=== PATIENT | male | born 1960 ===

== ENCOUNTER 2017-04-17 12:18 | Emergency (ER) | payer OTHER ==
[2017-04-17 12:37] VITALS: BP 126/76
--- NOTE | 2017-04-17 12:37 | UC ---
Ear Complaint HPI - HPI Summary HPI Summary: 56 y/o male presents to the urgent care c/o B/L ear pain for the past 2 days. Pt reports he feels pressure with mild pain. Pain is 4/10, specially on the RT ear with mild hearing loss. Pt denies fever, dizziness, SOB, cough, chest pain , N/V/D - History of Current Complaint Stated Complaint: BILATERAL EAR COMPLAINT Time Seen by Provider: 04/17/17 12:36 Hx Obtained From: Patient Onset/Duration: Gradual Onset, Lasting Days - 2 days Severity Initially: Mild Severity Currently: Moderate Pain Intensity: 4 Pain Scale Used: 0-10 Numeric Aggravating Factors: Nothing Alleviating Factors: Nothing Associated Signs/Symptoms: Positive: Hearing Loss - Allergies/Home Medications Allergies/Adverse Reactions: Allergies Allergy/AdvReac Type Severity Reaction Status Date / Time No Known Allergies Allergy Verified 04/17/17 12:37 PMH/Surg Hx/FS Hx/Imm Hx Previously Healthy: Yes - Pt denies PMHX - Surgical History Surgical History: None - Family History Known Family History: Positive: None - Pt denies FMHX - Social History Occupation: Employed Full-time Lives: With Family Alcohol Use: Occasionally Substance Use Type: None Smoking Status (MU): Never Smoked Tobacco Review of Systems Constitutional: Negative Skin: Negative Eyes: Negative ENT: Ear Ache - B/L Respiratory: Negative Cardiovascular: Negative Gastrointestinal: Negative Genitourinary: Negative Motor: Negative Neurovascular: Negative Musculoskeletal: Negative Neurological: Negative Psychological: Negative Is Patient Immunocompromised?: No All Other Systems Reviewed And Are Negative: Yes Physical Exam Triage Information Reviewed: Yes Appearance: Well-Appearing, No Pain Distress, Well-Nourished Vital Signs Reviewed: Yes Eye Exam: Normal Eyes: Positive: Conjunctiva Clear - PERRLA, EOMI ENT: Positive: Normal ENT inspection, Hearing grossly normal, Pharynx normal, TM red - RT exteranl ear canal clear, Rt TM with injected with erythema and white discharge. LF external ear canal clear, LF TM with mild erythema, but positive light reflex. Neck exam: Normal Neck: Positive: Supple, Nontender, No Lymphadenopathy Respiratory Exam: Normal Respiratory: Positive: Chest non-tender, Lungs clear, Normal breath sounds, No respiratory distress Cardiovascular Exam: Normal Cardiovascular: Positive: RRR, No Murmur, Pulses Normal Abdominal Exam: Normal Abdomen Description: Positive: Nontender, No Organomegaly, Soft. Negative: CVA Tenderness (R), CVA Tenderness (L) Bowel Sounds: Positive: Present Musculoskeletal Exam: Normal Musculoskeletal: Positive: Strength Intact, ROM Intact, No Edema Neurological Exam: Normal Psychological Exam: Normal Skin Exam: Normal Ear Complaint Course/Dx - Course Course Of Treatment: 56 y/o male presents to the urgent care c/o B/L ear pain for the past 2 days. Pt reports he feels pressure with mild pain. Pain is 4/10, specially on the RT ear. Pt denies fever, dizziness, SOB, cough, chest pain, N/V /D. Hx Obtained. Pt the Acute Rt otitis media on examination. Pt Rx Amoxicillin PO and advised to take Ibuprofen OTC for pain. Pt advised If symptoms do not improve or worsen please return to the urgent care or f/u with your PCP for further evaluation and treatment. Pt understood and agreed with plan of care. left the clinic ambulating. - Differential Dx/Diagnosis Differential Diagnosis/HQI/PQRI: Cerumen Impaction, Otitis Externa, Otitis Media , Perforated TM, Pharyngitis, URI Provider Diagnoses: 1- Acute RT otitis media Discharge - Discharge Plan Condition: Stable Disposition: HOME Prescriptions: Amoxicillin PO (*) [Amoxicillin 875 MG (*)] 875 mg PO BID #20 tab Patient Education Materials: Otitis Media (ED) Referrals: Jostin Vickers MD [Primary Care Provider] - If Needed Additional Instructions: 1- Please take the full course of the antibiotic to avoid resistance. 2-Please take OTC ibuprofen PO q6-8hrs prn as instructed after meals to alleviate pain and swelling. 3-If symptoms do not improve or worsen please return to the urgent care or f/u with your PCP for further evaluation and treatment.
== END 2017-04-17 12:56 | disposition home or self-care (01) ==
LOC: UCCORT 12:18
DX: H66.91 Otitis media, unspecified, right ear (principal)
CPT/HCPCS: 99212; G0463

== ENCOUNTER 2019-07-16 19:52 | Emergency (ER) | payer OTHER ==
--- NOTE | 2019-07-16 19:53 | UC ---
Skin Complaint HPI - HPI Summary HPI Summary: 58 yo male presents with abscess to back. He tells me that he has had many of these in the past. This one has been red, swollen, and painful for about 5 days. Denies fever. No hx of MRSA. No fever or chills - History of Current Complaint Time Seen by Provider: 07/16/19 19:53 Stated Complaint: SORE ON BACK Hx Obtained From: Patient Onset/Duration: Gradual Onset Onset Severity: Mild Current Severity: Mild Pain Intensity: 5 Pain Scale Used: 0-10 Numeric - Allergy/Home Medications Allergies/Adverse Reactions: Allergies Allergy/AdvReac Type Severity Reaction Status Date / Time No Known Allergies Allergy Verified 07/16/19 20:04 Home Medications: Home Medications Ibuprofen TAB* [Advil TAB*] 200 mg PO Q6HR 07/16/19 [History Confirmed 07/16/19] PMH/Surg Hx/FS Hx/Imm Hx - Additional Past Medical History Additional PMH: None - Surgical History Surgical History: None - Family History Known Family History: Positive: None - Pt denies FMHX - Social History Occupation: Employed Full-time Lives: With Family Alcohol Use: Occasionally Substance Use Type: None Smoking Status (MU): Never Smoked Tobacco Review of Systems All Other Systems Reviewed And Are Negative: No Constitutional: Positive: Negative Skin: Positive: Other - sore and back Respiratory: Positive: Negative Cardiovascular: Positive: Negative Neurological: Positive: Negative Psychological: Positive: Negative Physical Exam - Summary Physical Exam Summary: GENERAL: NAD. WDWN. No pain distress. SKIN: Central back with 7.0cm oval area of induration, firmness, and mild TTP. No drainage or streaking. NECK: Supple. Nontender. No lymphadenopathy. CHEST: No accessory muscle use. Breathing comfortably and in no distress. CV: Pulses intact. Cap refill <2seconds NEURO: Alert. PSYCH: Age appropriate behavior. Triage Information Reviewed: Yes Vital Signs: Vital Signs: Temp Pulse Resp BP Pulse Ox 98.3 F 83 16 113/59 97 07/16/19 19:59 07/16/19 19:59 07/16/19 19:59 07/16/19 19:59 07/16/19 19:59 Vital Signs Reviewed: Yes Procedures - Incision and Drainage 1 Anesthesia: Local Instrument(s): Scalpel - #11 Course/Dx - Course Course Of Treatment: The procedure was explained to the pt and all questions were answered. A time out was performed, witnessed, and signed. The area was cleansed with an alcohol pad. 2mL of 2% lidocaine without epi was administered and good anesthetization was achieved. A #11 blade was used to make a 1.0cm linear incision at the central most part of the abscess. Scant purulent matter was able to be expressed - mostly blood and clear fluid. Hemostasis achieved. The wound was bandaged with mepilex. Pt tolerated procedure well. Will place him on anbx - Diagnoses Provider Diagnosis: Abscess Discharge ED - Sign-Out/Discharge Documenting (check all that apply): Patient Departure All imaging exams completed and their final reports reviewed: No Studies - Discharge Plan Condition: Stable Disposition: HOME Prescriptions: Cephalexin CAP* [Keflex CAP*] 500 mg PO TID 7 Days #21 cap Patient Education Materials: Abscess (ED) Referrals: Jostin Vickers MD [Primary Care Provider] - Additional Instructions: If you develop a fever, shortness of breath, chest pain, new or worsening symptoms - please call your PCP or go to the ED immediately. Change the dressing daily. If the area comes to a "head" - this may need to be drained again. Please return to have this done - Billing Disposition and Condition Condition: STABLE Disposition: Home
[2019-07-16 20:04] VITALS: BP 113/59
[2019-07-16] MEDS ORDERED: Lidocaine 2% PF * 5 ML VIAL INJ ONE (20:04)
[2019-07-16] MEDS ORDERED: Cephalexin CAP* 500 MG PO ONE (20:21)
== END 2019-07-16 20:30 | disposition home or self-care (01) ==
LOC: UCEAST 19:52
DX: L02.212 Cutaneous abscess of back [any part, except buttock and flank] (principal)
CPT/HCPCS: 10060; 99212; A9270-GY; G0463